=== PATIENT | male | born 1950 | race Caucasian/White ===

== ENCOUNTER → 2016-08-05 | Outpatient (CLI) | payer BC ==
--- NOTE | 2016-08-05 17:13 | CR ---
EXAMINATION: Right hip HISTORY: Pain COMPARISON: None TECHNIQUE: 2 views FINDINGS: There is ossification along the superior labrum. No fracture or acute osseous abnormality. The right hip joint spaces appear preserved. Bone mineralization is normal. Partially visualized newby rdware fixates the pubic symphysis. IMPRESSION: Mild degenerative changes without acute findings.
--- NOTE | 2016-08-05 17:14 | CR ---
EXAMINATION: Right knee HISTORY: Pain COMPARISON: None TECHNIQUE: 3 views FINDINGS/IMPRESSION: There is no acute osseous abnormality, dislocation, or fracture identified. Bon e mineralization appears normal. Mild osteophyte formation is noted with grossly preserved joint spa jeny.
== END ==
LOC: MW.CHFP 15:43
PROVIDERS: ATTEND Physician Assistant
DX: M25.561 Pain in right knee (principal); M25.761 Osteophyte, right knee
CPT/HCPCS: 73502-26-RT; 73502-RT; 73562-26-RT; 73562-RT

== ENCOUNTER → 2016-08-12 | Outpatient (CLI) | payer BC ==
--- NOTE | 2016-08-13 09:40 | US ---
EXAMINATION: Nonvascular right lower extremity soft tissue ultrasound HISTORY: Pain COMPARISON: None TECHNIQUE: Grayscale and color Doppler images obtained of the region of concern. FINDINGS: There is a small oval fluid collection within the popliteal fossa measuring 2.9 x 0.6 cm c onsistent with a Dean's cyst. No suspicious mass or fluid collection noted. There is no joint effus ion. IMPRESSION: 1. Small Dean's cyst noted within the popliteal fossa, otherwise unremarkable limited soft tissue u ltrasound.
== END ==
LOC: MW.US 14:19
PROVIDERS: ATTEND Physician Assistant
DX: M25.561 Pain in right knee (principal); M71.21 Synovial cyst of popliteal space [Baker], right knee
CPT/HCPCS: 76881-26-RT; 76881-RT

== ENCOUNTER 2019-07-12 10:03 | Day surgery (SDC) | payer MEDICARE, OTHER ==
[~2019-07-12 10:03] MED LIST: Lactated Ringers 1,000 ML IV SCH; Sodium Chloride 0.9% 10 ML SDV IV PRN; Sodium Chloride 0.9% 10 ML Syringe FLUSH PRN; Sodium Chloride 0.9% 2.5 ML Syringe FLUSH PRN
[2019-07-12] MEDS ORDERED: Lidocaine 2% 5 ML SDV ONE (10:07)
[2019-07-12] MEDS ORDERED: fentaNYL 100 MCG/2 ML SDV ONE (10:07)
[2019-07-12] MEDS ORDERED: Propofol 200 MG/20 ML SDV ONE ×2 (10:07→13:04)
--- NOTE | 2019-07-12 10:56 | PCM.PREANE ---
Preanesthetic Assessment - Anesthesia/Transfusion/Family Hx Anesthesia History: Prior Anesthesia Without Reaction Family History of Anesthesia Reaction: No Transfusion History: Prior Transfusion Without Reaction - Review of Systems General: No Symptoms Pulmonary: No Symptoms Cardiovascular: No Symptoms Gastrointestinal: No Symptoms Neurological: No Symptoms Other: Reports: None - Physical Assessment NPO Status Date: 07/11/19 Vital Signs: Last Vital Signs Temp 97.2 F 07/12/19 10:30 Pulse 90 07/12/19 10:30 Resp 16 07/12/19 10:30 BP 147/95 H 07/12/19 10:30 Pulse Ox 90 L 07/12/19 10:30 Height: 5 ft 8 in Weight: 75.75 kg ASA Class: 2 Mental Status: Alert & Oriented x3 Airway Class: Mallampati = 2 Dentition: Reports: Normal Dentition ROM/Head Extension: Full Lungs: Clear to Auscultation, Normal Respiratory Effort Cardiovascular: Regular Rate, Regular Rhythm - Allergies Allergies/Adverse Reactions: Allergies Allergy/AdvReac Type Severity Reaction Status Date / Time No Known Allergies Allergy Verified 07/08/19 09:42 - Blood Blood Available: No - Acknowledgements Anesthesia Type Planned: General Anesthesia Pt an Appropriate Candidate for the Planned Anesthesia: Yes Alternatives and Risks of Anesthesia Discussed w Pt/Guardian: Yes Pt/Guardian Understands and Agrees with Anesthesia Plan: Yes Additional Comments: PMH: asthma with seasonal exacerbations (fall), htn, usst started on meds, thyroid replacement PLAN: tiva PreAnesthesia Questionnaire HEENT History: Reports: Other (See Below) Other HEENT History: wears glasses, has bilateral hearing aides Cardiovascular History: Reports: Hypertension Other Cardiovascular History: just started on Lisinopril a few days ago Respiratory History: Reports: Asthma 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 Other Genitourinary History: elevated PSA Musculoskeletal History: Reports: Fracture, Neck Pain, Chronic Endocrine/Metabolic History: Reports: Hypothyroidism Hematologic History: Reports: Blood Transfusion(s) - Past Surgical History Head Surgeries/Procedures: Reports: None HEENT Surgical History: Reports: Tonsillectomy GI Surgical History: Reports: Colonoscopy, EGD, Hernia, Inguinal Male Surgical History: Reports: Vasectomy Musculoskeletal Surgical History: Reports: Amputation, Other (See Below) Other Musculoskeletal Surgeries/Procedures:: hx of bilateral fx ankles-hardware removed, hx of fx left hip and pelvis- has hardware, amputation of left middle finger - SUBSTANCE USE Smoking Status *Q: Former Smoker Recreational Drug Use History: No - HOME MEDS Home Medications: Home Meds Albuterol Sulfate [Proair Hfa] 1 - 2 puff INH Q4H PRN 07/08/19 [History] Budesonide/Formoterol Fumarate [Symbicort 160-4.5 Mcg Inhaler] 1 puff INH BID [History] Levothyroxine Sodium [Synthroid] 125 mcg PO DAILY 07/08/19 [History] Lisinopril [Zestril] 5 mg PO QPM 07/08/19 [History] Sildenafil Citrate 470 mg PO ASDIRECTED PRN 07/08/19 [History] - CURRENT (IN HOUSE) MEDS Current Meds: Current Medications Lactated Ringer's (Ringers, Lactated) 1,000 mls @ 125 mls/hr IV ASDIRECTED JOVANI Last Admin: 07/12/19 10:53 Dose: 125 mls/hr Sodium Chloride (Saline Flush) 10 ml FLUSH ASDIRECTED PRN PRN Reason: Keep Vein Open Sodium Chloride (Saline Flush) 2.5 ml FLUSH ASDIRECTED PRN PRN Reason: Keep Vein Open Sodium Chloride (Saline Flush) 10 ml FLUSH ASDIRECTED PRN PRN Reason: Keep Vein Open Sodium Chloride (Saline Flush) 2.5 ml FLUSH ASDIRECTED PRN PRN Reason: Keep Vein Open Sodium Chloride (Normal Saline) 10 ml IV ASDIRECTED PRN PRN Reason: IV Use Discontinued Medications Fentanyl (Sublimaze) Confirm Administered Dose 100 mcg .ROUTE .STK-MED ONE Stop: 07/12/19 10:08 Lidocaine (Xylocaine-Mpf 2%) Confirm Administered Dose 5 ml .ROUTE .STK-MED ONE Stop: 07/12/19 10:08 Propofol (Diprivan 20 Ml) Confirm Administered Dose 400 mg .ROUTE .STK-MED ONE Stop: 07/12/19 10:08
[2019-07-12] MEDS ORDERED: cefOXitin 1 GM Vial ONE ×2 (13:17→13:20)
--- NOTE | 2019-07-12 13:30 | PCM.OPNOTE ---
<Soham Nieves M - Last Filed: 07/12/19 13:26> - General Post-Op/Procedure Note Date of Surgery/Procedure: 07/12/19 Operative Procedure(s): Colonoscopy Findings: Diverticulosis throughout colon Hepatic flexure polyp x 1 Transverse colon polyp x 1 Descending colon polyp x 1 Sigmoid colon polyp x 4 Pre Op Diagnosis: Screening colonoscopy Post-Op Diagnosis: Diverticulosis throughout colon. Hepatic flexure polyp x 1. Transverse colon polyp x 1. Descending colon polyp x 1. Sigmoid colon polyp x 4 Anesthesia Technique: MAC Primary Surgeon: Brea Mccormick Complications: None Condition: Stable <Brea Mccormick M - Last Filed: 07/12/19 13:39> - General Post-Op/Procedure Note Operative Procedure(s): Screening colonoscopy with polypectomy Post-Op Diagnosis: Diverticulosis of sigmoid colon Anesthesia Technique: MAC
--- NOTE | 2019-07-12 15:06 | PCM48HPAN ---
Post Anesthesia Note - EVALUATION WITHIN 48HRS OF ANESTHETIC Vital Signs in Normal Range: Yes Patient Participated in Evaluation: Yes Respiratory Function Stable: Yes Airway Patent: Yes Cardiovascular Function Stable: Yes Hydration Status Stable: Yes Pain Control Satisfactory: Yes Nausea and Vomiting Control Satisfactory: Yes Mental Status Recovered: Yes Vital Signs: Last Vital Signs Temp 97.0 F 07/12/19 13:55 Pulse 88 07/12/19 13:55 Resp 16 07/12/19 13:55 BP 119/66 07/12/19 13:55 Pulse Ox 95 07/12/19 13:55
--- NOTE | 2019-07-12 15:06 | PCM.POSTAN ---
POST ANESTHESIA ASSESSMENT - MENTAL STATUS Mental Status: Alert, Oriented - VITAL SIGNS Vital Signs: Last Vital Signs Temp 97.0 F 07/12/19 13:55 Pulse 88 07/12/19 13:55 Resp 16 07/12/19 13:55 BP 119/66 07/12/19 13:55 Pulse Ox 95 07/12/19 13:55 - RESPIRATORY Respiratory Status: Respiratory Rate WNL, Airway Patent, O2 Saturation Stable - CARDIOVASCULAR CV Status: Pulse Rate WNL, Blood Pressure Stable - GASTROINTESTINAL GI Status: No Symptoms - POST OP HYDRATION Hydration Status: Adequate & Stable
--- NOTE | 2019-07-13 21:49 | OR ---
SURGEON: BREA MCCORMICK MD DATE OF PROCEDURE: 07/12/2019 PREOPERATIVE DIAGNOSIS: Screening colonoscopy. POSTOPERATIVE DIAGNOSES: 1. Diverticulosis. 2. Hepatic flexure polyp. 3. Transverse colon polyp. 4. Descending colon polyp. 5. Sigmoid colon polyps x4. PROCEDURE PERFORMED: Screening colonoscopy with polypectomy. PRIMARY SURGEON: Brea Mccormick MD ANESTHESIA: MAC. INSTRUMENT USED: Olympus colonoscope. EXTENT OF THE EXAM: To the cecum. PREPARATION: Good. LIMITATIONS: None. INDICATIONS FOR EXAMINATION: The patient is a 69-year-old male who presents for a routine screening colonoscopy. I explained the procedure, expected perioperative course, and risks including bleeding, infection, or damage to surrounding structures including perforation. He verbalized understanding and wishes to proceed. PROCEDURE IN DETAIL: The patient was brought into the endoscopy suite and placed on the OR cart in a left lateral decubitus position. A time-out was completed verifying the patient's name, age, date of , allergies, and procedure to be performed. Monitored anesthesia care was induced and continuous oxygen was provided via nasal cannula throughout the procedure. After adequate sedation was achieved, a digital rectal exam was performed. This exam was within normal limits. A well- lubricated colonoscope was inserted in the rectum and advanced under direct visualization to the level of the cecum. The cecum was identified by both visual and anatomic landmarks. A photograph was taken of the cecal cap as well as with the scope retroflexed within the cecum. Scope was then fully withdrawn while examining the color, texture, anatomy, and integrity of the mucosa from the cecum to the anal canal. The patient was found to have diverticulosis within the sigmoid colon. He had multiple polyps throughout the colon. Most of these were small and sessile. They were removed using a cold biopsy forceps. There was 1 at the hepatic flexure, 1 in the transverse colon, 1 in the descending colon, and 4 in the sigmoid colon. Sigmoid colon polyp #1 was removed, however, using a hot snare given that it was larger in size. In order to get the remainder of the tissue around this area, I did have to use a cold biopsy forceps as well. Great care was taken to ensure that each of the spots had stopped bleeding by the end of the case. Given the multiple polyps that I removed, the patient was given 2 g of Mefoxin intraoperatively. Scope was then brought into the rectum and retroflexed to allow visualization of the anal canal opening. This appeared normal and a photograph was taken. Scope was then straightened out and fully withdrawn. The cecum to anus time was 30 minutes. The patient tolerated the procedure well and was taken to PACU in stable condition. ENDOSCOPIC DIAGNOSES: 1. Diverticulosis. 2. Hepatic flexure polyp. 3. Transverse colon polyp. 4. Descending colon polyp. 5. Sigmoid colon polyps x4. RECOMMENDATIONS: Follow up in clinic in 2 weeks. OLI FUNK /[id number]
== END 2019-07-12 14:25 | disposition home or self-care (01) ==
LOC: MW.SDS 10:03
PROVIDERS: ATTEND Surgery
DX: Z12.11 Encounter for screening for malignant neoplasm of colon (principal); D12.3 Benign neoplasm of transverse colon; D12.4 Benign neoplasm of descending colon; D12.5 Benign neoplasm of sigmoid colon; K57.30 Diverticulosis of large intestine without perforation or abscess without bleeding; F41.8 Other specified anxiety disorders; I10 Essential (primary) hypertension; E03.9 Hypothyroidism, unspecified; G89.29 Other chronic pain; M54.2 Cervicalgia; J45.20 Mild intermittent asthma, uncomplicated; Z87.19 Personal history of other diseases of the digestive system; Z79.899 Other long term (current) drug therapy; Z98.890 Other specified postprocedural states; Z87.891 Personal history of nicotine dependence
CPT/HCPCS: 45380; 45385; J0694; J2001; J2704; J3010; J7120; 88305

== ENCOUNTER 2020-08-16 08:02 | Day surgery (SDC) | payer MEDICARE, OTHER ==
[~2020-08-16 08:02] MED LIST changes: +Midazolam 1 MG/ML 2 ML SDV ONE; +Ondansetron 4 MG/2 ML SDV ONE; +Propofol 200 MG/20 ML SDV ONE; +fentaNYL 100 MCG/2 ML SDV ONE
--- NOTE | 2020-08-16 09:18 | PCM.PREANE ---
Preanesthetic Assessment - Anesthesia/Transfusion/Family Hx Anesthesia History: Prior Anesthesia Without Reaction Family History of Anesthesia Reaction: No Transfusion History: Prior Transfusion Without Reaction - Review of Systems General: No Symptoms Pulmonary: No Symptoms Cardiovascular: No Symptoms Gastrointestinal: No Symptoms Neurological: No Symptoms Other: Reports: None - Physical Assessment NPO Status Date: 08/16/20 NPO Status Time: 00:05 Vital Signs: Last Vital Signs Temp 97.9 F 08/16/20 08:21 Pulse 82 08/16/20 08:21 Resp 16 08/16/20 08:21 BP 132/66 08/16/20 08:21 Pulse Ox 95 08/16/20 08:21 Height: 5 ft 8 in Weight: 170 lb ASA Class: 2 Mental Status: Alert & Oriented x3 Dentition: Reports: Normal Dentition, Broken Tooth/Teeth, Missing Tooth/Teeth ROM/Head Extension: Limited/Partial Lungs: Clear to Auscultation, Normal Respiratory Effort Cardiovascular: Regular Rate, Regular Rhythm - Allergies Allergies/Adverse Reactions: Allergies Allergy/AdvReac Type Severity Reaction Status Date / Time No Known Allergies Allergy Verified 07/08/19 09:42 - Anesthesia Plan Pre-Op Medication Ordered: None - Acknowledgements Anesthesia Type Planned: General Anesthesia Pt an Appropriate Candidate for the Planned Anesthesia: Yes Alternatives and Risks of Anesthesia Discussed w Pt/Guardian: Yes Pt/Guardian Understands and Agrees with Anesthesia Plan: Yes Additional Comments: npo htn no cv problems in the past he denies any cardiac workup in the past tob quit 1988 etoh rare hayfever depression anxiety copd/asthma daily inhalers hx newby par no quiestions PreAnesthesia Questionnaire HEENT History: Reports: Other (See Below) Other HEENT History: wears glasses, has bilateral hearing aides Cardiovascular History: Reports: Hypertension Respiratory History: Reports: Asthma 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 Gastrointestinal History: Reports: Colon Polyp, Diverticulosis Other Genitourinary History: elevated PSA Musculoskeletal History: Reports: Fracture, Neck Pain, Chronic Psychiatric History: Endocrine/Metabolic History: Reports: Hypothyroidism Hematologic History: Reports: Blood Transfusion(s) - Past Surgical History Head Surgeries/Procedures: Reports: None HEENT Surgical History: Reports: Tonsillectomy GI Surgical History: Reports: Colonoscopy, EGD, Hernia, Inguinal Male Surgical History: Reports: Vasectomy Musculoskeletal Surgical History: Reports: Amputation, Other (See Below) Other Musculoskeletal Surgeries/Procedures:: hx of bilateral fx ankles-hardware removed, hx of fx left hip and pelvis- has hardware, amputation of left middle finger - SUBSTANCE USE Tobacco Use Status *Q: Former Tobacco User Tobacco Use Within Last Twelve Months: No Recreational Drug Use History: No - HOME MEDS Home Medications: Home Meds Levothyroxine Sodium [Synthroid] 125 mcg PO DAILY 07/08/19 [History] Sildenafil Citrate 40 mg PO ASDIRECTED PRN 07/08/19 [History] lisinopriL [Zestril] 5 mg PO QPM 07/08/19 [History] Albuterol [Ventolin HFA] 1 - 2 puff INH Q4H PRN 08/10/20 [History] Fluticasone/Umeclidin/Vilanter [Trelegy Ellipta 100-62.5-25] 1 puff INH DAILY 08/10/20 [History] Montelukast Sodium 10 mg PO DAILY 08/10/20 [History] - CURRENT (IN HOUSE) MEDS Current Meds: Current Medications Lactated Ringer's (Ringers, Lactated) 1,000 mls @ 125 mls/hr IV ASDIRECTED JOVANI Last Admin: 08/16/20 08:26 Dose: 125 mls/hr Documented by: Sodium Chloride (Sodium Chloride 0.9% 10 Ml Syringe) 10 ml FLUSH ASDIRECTED PRN PRN Reason: Keep Vein Open Sodium Chloride (Sodium Chloride 0.9% 2.5 Ml Syringe) 2.5 ml FLUSH ASDIRECTED PRN PRN Reason: Keep Vein Open Sodium Chloride (Sodium Chloride 0.9% 10 Ml Syringe) 10 ml FLUSH ASDIRECTED PRN PRN Reason: Keep Vein Open Sodium Chloride (Sodium Chloride 0.9% 2.5 Ml Syringe) 2.5 ml FLUSH ASDIRECTED PRN PRN Reason: Keep Vein Open Sodium Chloride (Sodium Chloride 0.9% 10 Ml Sdv) 10 ml IV ASDIRECTED PRN PRN Reason: IV Use Discontinued Medications Fentanyl (Fentanyl 100 Mcg/2 Ml Sdv) Confirm Administered Dose 100 mcg .ROUTE .STK-MED ONE Stop: 08/16/20 07:18 Midazolam HCl (Midazolam 1 Mg/Ml 2 Ml Sdv) Confirm Administered Dose 2 mg .ROUTE .STK-MED ONE Stop: 08/16/20 07:18 Ondansetron HCl (Ondansetron 4 Mg/2 Ml Sdv) Confirm Administered Dose 4 mg .ROUTE .STK-MED ONE Stop: 08/16/20 07:18 Propofol (Propofol 200 Mg/20 Ml Sdv) Confirm Administered Dose 200 mg .ROUTE .STK-MED ONE Stop: 08/16/20 07:18
[2020-08-16] MEDS ORDERED: cefOXitin 100 ML ONE (10:10)
--- NOTE | 2020-08-16 10:11 | PCM.OPNOTE ---
- General Post-Op/Procedure Note Date of Surgery/Procedure: 08/16/20 Operative Procedure(s): Diagnostic colonoscopy Findings: Inflamed and infected appearing diverticula at 45 cm. Superficial biopsies taken. Pre Op Diagnosis: History of colon polyps Post-Op Diagnosis: Diverticulitis Anesthesia Technique: [facility] Primary Surgeon: Brea Mccormick Pathology: Sigmoid colon biopsy Complications: Unable to pass scope past 45 cm Condition: Good
[2020-08-16] MEDS ORDERED: cefOXitin 2 GM in Sodium Chloride 0.9% 100 ML IV ONE (10:21)
[2020-08-16] MEDS ORDERED: cefOXitin 1 GM in Premix Bag 1 BAG IV ONE (10:27)
[2020-08-16] MEDS ORDERED: cefOXitin 2 GM in Premix Bag 1 BAG IV ONE (10:34)
--- NOTE | 2020-08-16 11:03 | PCM48HPAN ---
Post Anesthesia Note - EVALUATION WITHIN 48HRS OF ANESTHETIC Vital Signs in Normal Range: Yes Patient Participated in Evaluation: Yes Respiratory Function Stable: Yes Airway Patent: Yes Cardiovascular Function Stable: Yes Hydration Status Stable: Yes Pain Control Satisfactory: Yes Nausea and Vomiting Control Satisfactory: Yes Mental Status Recovered: Yes Vital Signs: Last Vital Signs Temp 97.9 F 08/16/20 08:21 Pulse 58 L 08/16/20 10:35 Resp 14 08/16/20 10:35 BP 101/66 08/16/20 10:35 Pulse Ox 95 08/16/20 10:35
--- NOTE | 2020-08-16 11:03 | PCM.POSTAN ---
POST ANESTHESIA ASSESSMENT - MENTAL STATUS Mental Status: Alert, Oriented - VITAL SIGNS Vital Signs: Last Vital Signs Temp 97.9 F 08/16/20 08:21 Pulse 58 L 08/16/20 10:35 Resp 14 08/16/20 10:35 BP 101/66 08/16/20 10:35 Pulse Ox 95 08/16/20 10:35 - RESPIRATORY Respiratory Status: Respiratory Rate WNL, Airway Patent, O2 Saturation Stable - CARDIOVASCULAR CV Status: Pulse Rate WNL, Blood Pressure Stable - GASTROINTESTINAL GI Status: No Symptoms - POST OP HYDRATION Hydration Status: Adequate & Stable
--- NOTE | 2020-08-17 19:52 | OR ---
SURGEON: BREA MCCORMICK MD DATE OF PROCEDURE: 08/16/2020 PREOPERATIVE DIAGNOSIS: History of colon polyps. POSTOPERATIVE DIAGNOSIS: Diverticulitis. PROCEDURE PERFORMED: Diagnostic colonoscopy. PRIMARY SURGEON: Endoscopist: Brea Mccormick MD. ANESTHESIA: MAC. INSTRUMENT USED: Olympus colonoscope. EXTENT OF THE EXAM: 45 cm into the colon. PREPARATION: Good. LIMITATIONS: Obstructing diverticulitis of the sigmoid colon. COMPLICATIONS: None. INDICATIONS: The patient is a 70-year-old male who presents for a 1-year followup colonoscopy. He had multiple colon polyps removed last year and is here for followup. We discussed the procedure, expected perioperative course, and the risks. He verbalized understanding and wishes to proceed. PROCEDURE IN DETAIL: The patient was brought to the endoscopy suite and placed in the left lateral decubitus position. A time-out was completed verifying the patient's name, age, date of , allergies, and procedure to be performed. Monitored anesthesia care was induced, and continuous oxygen was provided via nasal cannula throughout the procedure. After adequate sedation was achieved, a digital rectal exam was performed. This exam was within normal limits. A well- lubricated colonoscope was inserted in the rectum and advanced under direct visualization. At 45 cm from the anal verge, the patient was noted to have an obstructive mass. At first I thought that this was a large sessile polyp. A biopsy was taken. The biopsies that I took appeared to be friable tissue. After more insufflation, I was able to see that what was obstructing the colon was inflamed mucosa around an infected diverticulum. This was consistent with acute diverticulitis. No further attempt was made at traversing through the colon, and no other biopsies were taken. The scope was fully withdrawn while examining the color, texture, anatomy, and integrity of the mucosa of the distal sigmoid colon and rectum. The patient had diverticulosis of the sigmoid colon, but no other polyps were found. The scope was retroflexed within the rectum to allow visualization of the anal canal opening. This appeared normal, and a photograph was taken. The scope was then straightened out and fully withdrawn. The patient tolerated the procedure well and was taken to PACU. In the PACU, the patient was comfortable and had no abdominal discomfort. When I visited with him, he admitted that two days ago he developed sharp left lower quadrant pain similar to his diverticulitis in the past, but had not mentioned it to anybody preoperatively. Given that I had taken biopsies, I will put him on a two-week course of Cipro and Flagyl. He will follow up in clinic in 2 weeks. OLI FUNK /[id number] PELON
== END 2020-08-16 11:28 | disposition home or self-care (01) ==
LOC: MW.SDS 08:02
PROVIDERS: ATTEND Surgery
DX: Z12.11 Encounter for screening for malignant neoplasm of colon (principal); K57.92 Diverticulitis of intestine, part unspecified, without perforation or abscess without bleeding; J44.9 Chronic obstructive pulmonary disease, unspecified; I10 Essential (primary) hypertension; E03.9 Hypothyroidism, unspecified; Z79.899 Other long term (current) drug therapy; Z79.890 Hormone replacement therapy; Z86.010 Personal history of colon polyps; Z98.890 Other specified postprocedural states; Z87.891 Personal history of nicotine dependence
CPT/HCPCS: 36415; 45380; 85025; J0694; J2250; J2405; J2704; J3010; J7120; 00811

== ENCOUNTER 2023-05-25 08:51 | Emergency (ER) | payer MEDICARE, OTHER ==
[2023-05-25] MEDS ORDERED: Albuterol/Ipratropium 3.0-0.5 MG/3 ML Neb Soln NEB ONE (09:20)
[2023-05-25 09:55] LABS: BASOPHILS ABSOLUTE AUTO 0.06 K/uL (0.00-0.20); BASOPHILS PERCENT AUTO 0.7 % (0.0-1.0); EOSINOPHILS ABSOLUTE AUTO 0.73 K/uL (0.00-0.45); EOSINOPHILS PERCENT AUTO 8.1 % (0.0-6.0); HEMATOCRIT 48.1 % (42.0-52.0); HEMOGLOBIN 16.1 g/dL (14.0-18.0); IMMATURE GRAN ABSOLUTE AUTO 0.04 K/uL (0.00-0.05); IMMATURE GRAN PERCENT AUTO 0.4 % (0.0-0.4); LYMPHOCYTES ABSOLUTE AUTO 0.95 K/uL (1.00-4.80); LYMPHOCYTES PERCENT AUTO 10.5 % (24.0-44.0); MEAN CORPUSCULAR HEMOGLOBIN 29.3 pg (28.0-32.0); MEAN CORPUSCULAR HGB CONC 33.5 g/dL (32.0-36.0); MEAN CORPUSCULAR VOLUME 87.5 fL (83.0-99.0); MEAN PLATELET VOLUME 9.3 fL (9.4-12.4); MONOCYTES ABSOLUTE AUTO 0.85 K/uL (0.00-0.80); MONOCYTES PERCENT AUTO 9.4 % (0.0-8.0); NEUTROPHILS ABSOLUTE AUTO 6.41 K/uL (1.80-7.70); NEUTROPHILS PERCENT AUTO 70.9 % (41.0-71.0); PLATELET COUNT,PLT 201 K/uL (150-400); WHITE BLOOD CELL COUNT,WBC 9.04 K/uL (3.9-11.3)
[2023-05-25 10:34] LABS: CORONAVIRUS COVID-19 NAA NEGATIVE (NEGATIVE); INFLUENZA A NAA NEGATIVE (NEGATIVE); INFLUENZA B NAA NEGATIVE (NEGATIVE); RESPIRATORY SYNCYTIAL VIR NAA NEGATIVE (NEGATIVE)
[2023-05-25 10:39] LABS: ALBUMIN 3.3 g/dL (3.4-5.0); CALCIUM 9.7 mg/dL (8.5-10.1); CARBON DIOXIDE,CO2 24.4 mmol/L (21.0-32.0); CREATININE 0.8 mg/dL (0.8-1.3); EST CRCL DRUG DOSING (CG) 78.38 mL/min; POTASSIUM,K 4.1 mmol/L (3.5-5.1); PROTEIN TOTAL,TP 6.6 g/dL (6.4-8.2)
[2023-05-25 10:40] LABS: BILIRUBIN TOTAL 0.6 mg/dL (0.2-1.0)
== END 2023-05-25 11:06 | disposition home or self-care (01) ==
LOC: MW.ED 08:51
DX: J20.9 Acute bronchitis, unspecified (principal); Z20.822 Contact with and (suspected) exposure to COVID-19; I10 Essential (primary) hypertension; J45.909 Unspecified asthma, uncomplicated; E03.9 Hypothyroidism, unspecified; Z87.891 Personal history of nicotine dependence
CPT/HCPCS: 0241U; 36415; 71045; 80053; 85025; 99285; J7620-GY

== ENCOUNTER 2024-11-15 06:28 | Day surgery (SDC) | payer MEDICARE, OTHER ==
[~2024-11-15 06:28] MED LIST changes: -Lactated Ringers 1,000 ML IV SCH; -Midazolam 1 MG/ML 2 ML SDV ONE; -Ondansetron 4 MG/2 ML SDV ONE; -Propofol 200 MG/20 ML SDV ONE; -Sodium Chloride 0.9% 10 ML SDV IV PRN; -fentaNYL 100 MCG/2 ML SDV ONE
[2024-11-15] MEDS: Lactated Ringers 1,000 ML IV SCH (07:04)
[2024-11-15] MEDS ORDERED: Propofol 200 MG/20 ML SDV ONE (07:15)
== END 2024-11-15 08:34 | disposition home or self-care (01) ==
LOC: MW.SDS 06:28
PROVIDERS: ATTEND Surgery
DX: K29.71 Gastritis, unspecified, with bleeding (principal); K21.9 Gastro-esophageal reflux disease without esophagitis; I10 Essential (primary) hypertension; E03.9 Hypothyroidism, unspecified; Z86.16 Personal history of COVID-19; Z87.891 Personal history of nicotine dependence; Z79.890 Hormone replacement therapy; Z79.899 Other long term (current) drug therapy
CPT/HCPCS: 43239; 88305; J2003; J2704; J7120; 00731